=== PATIENT | female | born 1985 | race American Indian/Alaskan Native ===

== ENCOUNTER 2018-10-09 16:13 | Emergency (ER) | payer BC ==
--- NOTE | 2018-10-09 16:19 | Emergency Department Report ---
Blank Doc - Documentation Documentation: This is a 33-year-old female that presents with lower back pain. Stated has b een bending and lifting at work. Denies any trauma. Denies any urinary symptoms. Stated pain radiates to left lower leg. This initial assessment/diagnostic orders/clinical plan/treatment(s) is/are subject to change based on patient's health status, clinical progression and re- assessment by fellow clinical providers in the ED. Further treatment and workup at subsequent clinical providers discretion. Patient/guardians urged not to elope from the ED as their condition may be serious if not clinically assessed and managed. Initial orders include: 1- Patient sent to [facility] for further evaluation and treatment
[2018-10-09] MEDS ORDERED: DELTASONE PO ONE (20:04)
[2018-10-09] MEDS ORDERED: IBUPROFEN PO ONE (20:04)
--- NOTE | 2018-10-09 20:06 | Emergency Department Report ---
ED Back Pain/Injury HPI - General Chief Complaint: Back Pain/Injury Stated Complaint: BACK PAIN Time Seen by Provider: 10/09/18 16:18 Source: patient Limitations: No Limitations - History of Present Illness Initial Comments: 33-year-old -[place] female presents to the emergency room for lower back pain since Tuesday while at work. Patient states that she was just walk ing when the pain started. Patient reports that the pain starts in her left lower back shoots down her buttocks into her right inner and outer thigh. Patient states that the pain feels like it is burning and aching and throbbing. Patient denies any trauma. Patient denies any urinary incontinence no urinary symptoms. Patient states that the pain increased with certain movements. Patient has taken nothing for pain. Patient reports no past medical history currently takes no medications on a daily basis and has no known drug allergies. MD Complaint: back pain -: days(s) (3) Similar Symptoms Previously: Yes Place: work Radiation: left leg Severity: moderate Quality: burning Improves With: none Worsens With: movement, walking Context: turning/twisting Associated Symptoms: denies other symptoms - Related Data Previous Rx's Medication Instructions Recorded Last Taken Type Ibuprofen [Motrin 800 MG tab] 800 mg PO Q8HR PRN #30 tablet 10/09/18 Unknown Rx predniSONE [Deltasone] 50 mg PO QDAY #5 tab 10/09/18 Unknown Rx Allergies Allergy/AdvReac Type Severity Reaction Status Date / Time No Known Allergies Allergy Unverified 10/09/18 16:14 ED Review of Systems ROS: Stated complaint: BACK PAIN Other details as noted in HPI Comment: All other systems reviewed and negative Musculoskeletal: back pain ED Past Medical Hx - Past Medical History Previous Medical History?: No - Surgical History Past Surgical History?: No - Social History Smoking Status: Current Every Day Smoker Substance Use Type: None - Medications Home Medications: Home Medications Medication Instructions Recorded Confirmed Last Taken Type Ibuprofen [Motrin 800 MG tab] 800 mg PO Q8HR PRN #30 tablet 10/09/18 Unknown Rx predniSONE [Deltasone] 50 mg PO QDAY #5 tab 10/09/18 Unknown Rx ED Physical Exam - General Limitations: No Limitations General appearance: alert - Head Head exam: Present: atraumatic, normocephalic - Eye Eye exam: Present: normal appearance, EOMI - ENT ENT exam: Present: mucous membranes moist - Respiratory Respiratory exam: Present: normal lung sounds bilaterally. Absent: respiratory distress - Cardiovascular Cardiovascular Exam: Present: regular rate, normal rhythm. Absent: systolic murmur, diastolic murmur, rubs, gallop - GI/Abdominal GI/Abdominal exam: Present: soft, normal bowel sounds - Expanded Lower Extremity Exam Left Lower Leg exam: Present: normal inspection, full ROM. Absent: tenderness, swelling, abrasion Neuro vascular tendon exam: Present: no vascular compromise - Expanded Back Exam Expanded Back exam: Sciatic Notch Tenderness: Left, Positive Straight Leg Raise: Left, Negative Straight Leg Raising: Right - Neurological Exam Neurological exam: Present: alert, oriented X3, normal gait - Psychiatric Psychiatric exam: Present: normal affect, normal mood - Skin Skin exam: Present: warm, dry, intact, normal color. Absent: rash ED Course Vital Signs 10/09/18 16:18 Temperature 98.8 F Pulse Rate 85 Respiratory 16 Rate Blood Pressure 133/77 O2 Sat by Pulse 99 Oximetry Critical care attestation.: If time is entered above; I have spent that time in minutes in the direct care of this critically ill patient, excluding procedure time. ED Disposition Clinical Impression: Back pain with left-sided sciatica Disposition: [id number] TO HOME OR SELFCARE Is pt being admited?: No Does the pt Need Aspirin: No Condition: Stable Instructions: Sciatica (ED), Lumbar Radiculopathy (ED) Additional Instructions: Please take medication as prescribed. Please use exercise sheet to guide she went to exercising for sciatica. If her symptoms persist or gets worse please follow up with her primary care provider. I have listed one below for your convenience. Prescriptions: predniSONE [Deltasone] 50 mg PO QDAY #5 tab Ibuprofen [Motrin 800 MG tab] 800 mg PO Q8HR PRN #30 tablet PRN Reason: Pain , Severe (7-10) Referrals: TOÑA MACARIO MD [Staff Physician] - 3-5 Days Forms: Work/School Release Form(ED)
[2018-10-09 20:27] VITALS: BP 132/81
== END 2018-10-09 20:25 | disposition home or self-care (01) ==
LOC: ED 16:13
DX: M54.42 Lumbago with sciatica, left side (principal); F17.200 Nicotine dependence, unspecified, uncomplicated
CPT/HCPCS: 99282; J7512